=== PATIENT | male | born 1970 | race Caucasian/White ===

== ENCOUNTER 2018-05-10 10:46 | Emergency (ER) | payer OTHER ==
--- NOTE | 2018-05-10 10:48 | PDOC ---
History of Present Illness - General Chief Complaint: Burn Stated Complaint: BURN RIGHT FORE ARM AT WORK Time Seen by Provider: 05/10/18 10:48 - History of Present Illness Initial Comments: 48yo M with no significant PMH presenting with burn. Patient states he sustained the burn about one hour prior to arrival. 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 He also hit his arm against a hot pipe under the machine. Patient endorses 10/10 pain in the area of injury. He has not taken anything for the pain. Denies bleeding. No fevers, chills, chest pain , or shortness of breath. Past History - Past Medical History Allergies/Adverse Reactions: Allergies Allergy/AdvReac Type Severity Reaction Status Date / Time No Known Allergies Allergy Verified 05/10/18 10:47 Home Medications: Ambulatory Orders Silver Sulfadiazine 25 gm TP BID #1 tube 05/10/18 Review of Systems - Review of Systems Comments:: Constitutional: no fever, no chills HEENT: no throat pain, no dysphagia Cardiovascular: no chest pain, no palpitations Respiratory: no cough, no shortness of breath Gastrointestinal: no abdominal pain, no nausea Genitourinary: no dysuria, no frequency Musculoskeletal: no myalgia, no arthralgia Skin: +burn, no itching Neurologic: no headache, no dizziness *Physical Exam - Physical Exam Comments: General: Awake, alert, and fully oriented, in no acute distress Head: No signs of trauma Eyes: EOMI, sclera anicteric ENT: Moist mucus membranes Neck: Normal ROM, supple Lungs: Lungs clear, Normal breath sounds Cardio: Regular rhythm, S1 and S2 present Abdomen: Soft, nontender Extremities: Normal range of motion, Distal pulses present SKIN: Warm, Dry, normal turgor Neurologic: Cranial nerves II through XII grossly intact. Normal speech 8x4cm area of right anterior forearm with 2nd degree superficial burn with debrided skin Normal strength and sensation in RUE Medical Decision Making - Medical Decision Making 48yo M with no significant PMH presenting with burn. 2nd degree superficial burn on patient's right forearm Tylenol 975 for pain Burn debrided and covered with silver sulfadiazene Discharged with silver sulfadiazene prescription Patient discharged *DC/Admit/Observation/Transfer Diagnosis at time of Disposition: Burn - Discharge Dispostion Disposition: HOME Condition at time of disposition: Stable - Prescriptions Prescriptions: Silver Sulfadiazine 25 gm TP BID #1 tube - Referrals Referrals: [facility] [place] [Provider Group] - Patient Instructions Printed Discharge Instructions: DI for [facility] Additional Instructions: You came to the ED for a burn on your right forearm. Prescription sent to your pharmacy: Silver sulfadiazene: Apply to a thickness of 1/16 inch once or twice daily; reapply as needed; burned area should be covered with cream at all times As an alternative, you can apply an antibiotic ointment like bacitracin, mupirocin, or neosporin to the area. Follow-up with a primary care doctor in 7-10 days to discuss this ED visit and to evaluate the progress of your wound. We have also referred you to the [facility]. Your care is not complete until you do so. Call and make an appointment. Immediate medical attention is required if you have: redness or hardness around the wound, pain or tenderness, a red streak, yellow or green discharge oozing from the wound, fever or chills. If you think you are having an emergency, call for emergency medical services or present to the emergency department right away. - Post Discharge Activity Forms/Work/School Notes: Back to Work
[2018-05-10] MEDS ORDERED: SILVER SULFADIAZINE 1% TOP CREAM 50 GM JAR TP ONE ×2 (10:58→11:01)
[2018-05-10] MEDS ORDERED: ACETAMINOPHEN 325 MG TABLET (FP) PO ONE (11:09)
[2018-05-10] MEDS ORDERED: ACETAMINOPHEN 325 MG TABLET (FP) ONE (11:16)
[2018-05-10 11:26] VITALS: BP 145/97; PULSE 91; TEMP 98.7; BMI 28.8
--- NOTE | 2018-05-10 11:38 | PDOC ---
Attending Attestation - Resident Resident Name: Opal Wilkerson - ED Attending Attestation I have performed the following: I have examined & evaluated the patient, The case was reviewed & discussed with the resident, I agree w/resident's findings & plan, Exceptions are as noted - HPI HPI: 05/10/18 11:35 48 year old male c/ no pmh p/w R forearm burn ~1% partial superficial thickness burn. Pt is right hand dominant. Last tetanus ~4 years ago. 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 ~8 x 4 cm. no numbness, weakness. Occurred prior to arrival. - Physicial Exam PE: 05/10/18 11:35 GENERAL: Awake, alert, and fully oriented, in no acute distress HEAD: No signs of trauma EYES: EOMI, sclera anicteric, conjunctiva clear ENT: Auricles normal inspection, hearing grossly normal, nares patent NECK: Normal ROM, supple EXTREMITIES: Normal range of motion, no edema. No clubbing or cyanosis. No cords, erythema, or tenderness NEUROLOGICAL: Cranial nerves II through XII grossly intact. Normal speech, normal gait SKIN: Right anterior mid forearm approx 8 x 4 cm superficial partial thickness burn with sloughing of skin. - Medical Decision Making 05/10/18 11:36 Vital Signs Temp Pulse Resp BP Pulse Ox 98.7 F 91 H 18 145/97 97 05/10/18 10:47 05/10/18 10:47 05/10/18 10:47 05/10/18 10:47 05/10/18 10:47 Impression: ~1% second degree burn. Not over joints. No neural deficits. No signs of infection. Tetanus is up to date. Silver sulfadiazene topical BID until burn is healed. Scar precautions given. Follow up with PMD or burn clinic. Return precautions given.
== END 2018-05-10 11:52 | disposition home or self-care (01) ==
LOC: FER 10:46
PROC: 2W28X4Z Dressing of Right Upper Extremity using Bandage (ICD-10-PCS; principal; 2018-05-10)
DX: T20.26XA Burn of second degree of forehead and cheek, initial encounter (principal); X15.0XXA Contact with hot stove (kitchen), initial encounter; Y93.G3 Activity, cooking and baking; Y92.89 Other specified places as the place of occurrence of the external cause; Y99.0 Civilian activity done for income or pay
CPT/HCPCS: 99282-25